=== PATIENT | female | born 1945 | race Caucasian/White ===

== ENCOUNTER 2017-05-18 13:09 | Emergency (ER) | payer OTHER ==
[2017-05-18 13:21] VITALS: BP 157/86
--- NOTE | 2017-05-18 13:23 | ED CARDIAC/CP/PALPITATIONS ---
History of Present Illness General Chief Complaint: General Adult Stated Complaint: BROUGHT OVER FROM GI LAB FOR AFIB Source: patient, family Exam Limitations: no limitations Vital Signs & Intake/Output Vital Signs & Intake/Output Vital Signs Date Time Temp Pulse Resp B/P B/P Pulse O2 O2 Flow FiO2 Mean Ox Delivery Rate 05/18 1321 96 16 157/86 96 Room Air Triage Nurses Notes Reviewed? yes HPI: Patient was having a colonoscopy and endoscopy under anesthesia. Shortly after induction her blood pressure decreased to 80/60. Patient received phenylephrine. Prior to that the patient was in normal sinus rhythm in the 70s. After the medication her blood pressure did respond however heart rate increased to the 120s. Patient was then in a sinus tach with PACs. The procedure was completed and once the patient began to awaken and she denied any chest pain she was given esmolol. Patient was brought to recovery and she was now found to be in a rapid A. fib in the 140s. Cardiology was consult did and the patient was sent to the emergency department for further evaluation. During this episode the patient denied any chest pain or palpitations. There is no shortness of breath. Upon arrival to the emergency department patient was again in sinus rhythm in the 70s. Patient remained asymptomatic. Past History Travel History Traveled to [place] past 21 day No Medical History Any Pertinent Medical History? see below for history Cardiovascular: hypertension, hyperlipidemia Surgical History Surgical History: non-contributory Psychosocial History Tobacco Use: Quit >30 days ago ETOH Use: occasional use Illicit Drug Use: denies illicit drug use Family History Hx Contributory? No Review of Systems Review of Systems Constitutional: Reports: no symptoms. EENTM: Reports: no symptoms. Respiratory: Reports: no symptoms. Cardiovascular: Reports: no symptoms. GI: Reports: no symptoms. Genitourinary: Reports: no symptoms. Musculoskeletal: Reports: no symptoms. Skin: Reports: no symptoms. Neurological/Psychological: Reports: no symptoms. Hematologic/Endocrine: Reports: no symptoms. Immunologic/Allergic: Reports: no symptoms. All Other Systems: Reviewed and Negative Physical Exam Physical Exam General Appearance: well developed/nourished, alert, awake, anxious, mild distress Head: atraumatic, normal appearance Eyes: Bilateral: PERRL, EOMI. Ears, Nose, Throat: normal pharynx, normal ENT inspection, hearing grossly normal Neck: normal inspection, supple, full range of motion Respiratory: normal breath sounds, chest non-tender, no respiratory distress, lungs clear Cardiovascular: regular rate/rhythm, normal peripheral pulses Gastrointestinal: normal bowel sounds, soft, non-tender, no organomegaly Back: normal inspection, normal range of motion Extremities: normal inspection, normal capillary refill, normal range of motion, no edema Neurologic/Psych: no motor/sensory deficits, awake, alert, oriented x 3, normal mood/affect Skin: intact, normal color, warm/dry Lymphatic: no anterior cervical sam Core Measures ACS in differential dx? Yes CVA/TIA Diagnosis No Sepsis Present: No Sepsis Focused Exam Completed? No Progress Differential Diagnosis: AMI, atrial fibrillation, hyperthyroid, myocarditis, pericarditis, pneumonia, pneumothorax Plan of Care: Orders Procedure Date/time Status Telemetry/Spring Tier 05/18 1322 Active THYROID STIMULATING HORMONE 05/18 1322 Complete TROPONIN LEVEL 05/18 1322 Complete T3 UPTAKE (THYROXINE BIND CAP) 05/18 1322 Complete FREE T4 05/18 1322 Complete COMPREHENSIVE METABOLIC PANEL 05/18 1322 Complete CBC WITHOUT DIFFERENTIAL 05/18 1322 Complete EKG 05/18 1311 Active Current Medications Sig/Maribel Start time Last Medication Dose Stop Time Status Admin Potassium Chloride 40 MEQ ONCE ONE 05/18 1445 UNVr (K-Dur) 05/18 1446 Laboratory Tests 05/18/17 1355: Anion Gap 13, Estimated GFR > 60, BUN/Creatinine Ratio 16.7, Glucose 88, Calcium 9.8, Total Bilirubin 0.8, AST 33, ALT 35, Alkaline Phosphatase 54, Troponin I < 0.01, Total Protein 7.0, Albumin 4.3, Globulin 2.7, Albumin/Globulin Ratio 1.6, TSH 0.889, Free T4 1.40, Thyroxine Binding Indx 32.2, CBC w Diff NO MAN DIFF REQ , RBC 5.27, MCV 84.2, MCH 28.3, MCHC 33.7, RDW 13.8, MPV 6.2 L, Gran % 77.8 H, Lymphocytes % 14.2 L, Monocytes % 6.1, Eosinophils % 1.4, Basophils % 0.5, Absolute Granulocytes 9.3 H, Absolute Lymphocytes 1.7, Absolute Monocytes 0.7 H, Absolute Eosinophils 0.2, Absolute Basophils 0.1 Diagnostic Imaging: Viewed by Me: Radiology Read. Discussed w/RAD: Radiology Read. CXR Impression: SEE BELOW Initial ED EKG: NSR, nonspecific ST T wave chg Rhythm Strip: normal sinus rhythm Comments: PATIENT: MARGARITA DESAI PRESENT AGE: 71 PATIENT ACCOUNT NO: [id number] : 44 LOCATION: [facility] ORDERING PHYSICIAN: Henry Thompson MD SERVICE DATE: 05/18/17 EXAM TYPE: RAD - XRY-PORTABLE CHEST XRAY EXAMINATION: XR PORTABLE CHEST CLINICAL INFORMATION: Chest pain COMPARISON: None TECHNIQUE: Portable frontal view of the chest was obtained. FINDINGS: Cardiomediastinal silhouette is within normal limits. Crowding of the bronchovascular structures right infrahilar region. Elevated of the right hemidiaphragm with low right lung volume. No acute airspace opacity appreciated. Left lung is clear. Bony thorax is intact. IMPRESSION: Low right lung volume with elevation right hemidiaphragm and crowding of the bronchovascular structures as detailed. No definite evidence of acute airspace opacity. DICTATED BY: Cholo Recinos MD DATE/TIME DICTATED:05/18/171353 LAG SCREWER:PEDRO DATE/TIME TRANSCRIBED:05/18/171353 CONFIDENTIAL, DO NOT COPY WITHOUT APPROPRIATE AUTHORIZATION. <Electronically signed in Other Vendor System> SIGNED BY: Cholo Recinos MD 05/18/17 3569 Case was discussed with Dr. Donahue after confirming the timeline of medication administration during the procedure. Patient remains in normal sinus rhythm without ectopy. 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 Departure Departure Disposition: HOME OR SELF CARE Condition: Stable Clinical Impression Primary Impression: Atrial fib/flutter, transient Referrals: Devora Her MD (PCP/Family) Additional Instructions: FOLLOW UP WITH YOUR BELT LOOP MAKER REUTRNIF SYMPTOMS HAPPEN AGAIN OR FOR ANY OTHER CONCERNS Departure Forms: Customer Survey General Discharge Information Critical Care Note Critical Care Note Critical Care Time: non-applicable
--- NOTE | 2017-05-18 13:59 | RADIOLOGY REPORT ---
EXAMINATION: XR PORTABLE CHEST CLINICAL INFORMATION: Chest pain COMPARISON: None TECHNIQUE: Portable frontal view of the chest was obtained. FINDINGS: Cardiomediastinal silhouette is within normal limits. Crowding of the bronchovascular structures right infrahilar region. Elevated of the right hemidiaphragm with low right lung volume. No acute airspace opacity appreciated. Left lung is clear. Bony thorax is intact. IMPRESSION: Low right lung volume with elevation right hemidiaphragm and crowding of the bronchovascular structures as detailed. No definite evidence of acute airspace opacity.
[2017-05-18 14:04] LABS: ABSOLUTE BASOPHIL COUNT 0.1 /CUMM (0.0-0.2); ABSOLUTE EOSINOPHIL COUNT 0.2 /CUMM (0.0-0.7); ABSOLUTE GRANULOCYTE CT 9.3 /CUMM (1.4-6.5); ABSOLUTE LYMPH COUNT 1.7 /CUMM (1.2-3.4); ABSOLUTE MONOCYTE COUNT 0.7 /CUMM (0.10-0.60); BASOPHIL % 0.5 % (0.0-2.0); EOSINOPHIL % 1.4 % (0-5); GRANULOCYTE % 77.8 % (42.2-75.2); HEMATOCRIT 44.4 % (37-47); MEAN CORPUSCULAR HGB 28.3 PG (27.0-31.0); MEAN CORPUSCULAR HGB CONC 33.7 G/DL (33.0-37.0); MEAN CORPUSCULAR VOLUME 84.2 FL (81.0-99.0); MEAN PLATELET VOLUME 6.2 FL (7.4-10.4); PLATELET COUNT 292 /CUMM (130-400); RBC DISTRIBUTION WIDTH 13.8 % (11.5-14.5); RED BLOOD CELL CT 5.27 /CUMM (4.20-5.40); WHITE BLOOD CELL COUNT 11.9 /CUMM (4.8-10.8)
--- NOTE | 2017-05-18 14:36 | Cons- Cardiology ---
General Information and HPI Consulting Request Date of Consult: 05/18/17 Requested By: MD Thompson David Reason for Consult: New onset atrial fibrillation with a rapid ventricular response. Source of Information: patient Exam Limitations: no limitations History of Present Illness: Mrs. Marcela Jay is a 71-year-old female who is followed by service delivery manager Onofre Sharma M.D. with a history of remote tobacco use, hypertension, dyslipidemia, and "prediabetes" who we are asked to evaluate and help manage after she underwent a combined screening EGD/colonoscopy and was observed to go into a narrow complex, irregularly, irregular tachyarrhythmia consistent with atrial fibrillation with a rapid ventricular response. She reportedly received total intravenous anesthesia with propofol and became hypotensive, which prompted anesthesia to give her phenylephrine. After this was administered she reportedly became tachycardic with multiple PACs. She was then given esmolol and was subsequently observed to be in atrial fibrillation. Her only complaint at this time is of intermittent palpitations described as her heart beating rapidly. She denies any recent chest discomfort, shortness of breath, orthopnea, paroxysmal nocturnal dyspnea, lower extremity edema, dry cough, syncope, near syncope, lightheadedness, dizziness, or claudication. She denies any history of any coronary, valvular, dysrhythmic/conduction disease , or cardiomyopathy. Review of Systems Review of Systems: A 14 point system review was obtained and was noncontributory, other than as above. Past History Travel History Traveled to [place] past 21 day No Medical History Cardiovascular: hypertension, hyperlipidemia Gastrointestinal: colonic polyps, diverticular disease Musculoskeletal: osteoarthritis Endocrine: "prediabetes" Surgical History Surgical History: cholecystectomy, hysterectomy, bunionectomies Family History Family History Reviewed? reviewed/non-contributory Psychosocial History Smoking Status: Former Smoker ETOH Use: occasional use Illicit Drug Use: denies illicit drug use Exam & Diagnostic Data Vital Signs and I&O Vital Signs Date Time Temp Pulse Resp B/P B/P Pulse O2 O2 Flow FiO2 Mean Ox Delivery Rate 05/18 1321 96 16 157/86 96 Room Air Intake & Output 05/18 1600 05/18 0800 05/18 0000 05/17 1600 05/17 0800 05/17 0000 Intake Total 1000 Output Total Balance 1000 Intake, IV 1000 Physical Exam: Well-developed, well-nourished elderly female in no acute distress with nasal oxygen in place. Vital signs: See above. HEENT: Normocephalic, atraumatic, EOMI, slightly dry mucous membranes. Neck: No JVD, no bruits. Lungs: Clear to auscultation bilaterally. Heart: S1, S2 with no murmur, gallop, or rub appreciated. PMI fifth ICS at [facility]. Abdomen: Soft, nontender, positive bowel sounds. Extremities: No edema. Labs/Tyron Results: Laboratory Tests 05/18 1355 Chemistry Sodium Pending Potassium Pending Chloride Pending Carbon Dioxide Pending Anion Gap Pending BUN Pending Creatinine Pending BUN/Creatinine Ratio Pending Glucose Pending Calcium Pending Total Bilirubin Pending AST Pending ALT Pending Alkaline Phosphatase Pending Troponin I Pending Total Protein Pending Albumin Pending Globulin Pending Albumin/Globulin Ratio Pending TSH Pending Free T4 Pending Thyroxine Binding Indx Pending Hematology CBC w Diff Pending WBC Pending RBC Pending Hgb Pending Hct Pending MCV Pending MCH Pending MCHC Pending RDW Pending Plt Count Pending MPV Pending Diagnostic Data EKG Results 05/17/2017: Atrial fibrillation with rapid ventricular response and nondiagnostic ST-T wave abnormalities. Assessment/Plan Assessment/Plan [id number] w/ a hx remote tobacco use, HTN, HLD, & "pre-DM" who we are asked to evaluate and help manage after she underwent a combined screening EGD/ colonoscopy and was observed to go into a narrow complex, irregularly, irregular tachyarrhythmia c/w AF w/ a RVR. Mrs. Jay would benefit from control of the ventricular response to her atrial fibrillation and would be a candidate for full anticoagulation given a [id number] Score of ~4 (HTN, age 72-74 yrs, "pre-DM", female gender) giving her insulin adjusted stroke great of ~4.8% per year. Recommendations: * Admit to telemetry, follow-up troponins, repeat ECG. * Start IV diltiazem to help control the ventricular response to her atrial fibrillation. * N0AC. * Echocardiogram. * Check CVC, comprehensive metabolic profile, coagulation panel, free T4, TSH, magnesium, glycosylated hemoglobin A1c, etc. * Baseline CXR. * DVT prophylaxis to be addressed by the [facility]. Further recommendations will follow, Thank you. Consult Acknowledgment - Thank you for your consult request.
== END 2017-05-18 15:19 ==
LOC: ERH 13:09
PROVIDERS: Emergency Medicine
DX: I48.91 Unspecified atrial fibrillation (principal)
CPT/HCPCS: 71045; 93005; 93010